=== PATIENT | female | born 1960 | race Caucasian/White ===

== ENCOUNTER 2017-12-19 10:57 | Outpatient (CLI) | payer SELFPAY ==
--- NOTE | 2017-12-24 10:13 | MMO ---
BILATERAL SCREENING MAMMOGRAM: DATE: 12/19/17 HISTORY: 57-year-old female for screening mammography. COMPARISON: 12/05/11, 05/30/16. FINDINGS: Bilateral MLO and CC views of the breasts show heterogeneously dense breast parenchyma, which may low er the sensitivity of mammography. Benign-appearing calcifications are seen in both breasts. There is no evidence of suspicious mass, daley spicious cluster of microcalcifications, or area of architectural distortion. Interpretation of this mammogram was performed with the assistance of computer-aided detection. IMPRESSION: BIRADS 2: Benign Finding(s) Annual screening mammography is recommended. POS: [facility]
== END 2017-12-19 10:58 | disposition home or self-care (01) ==
LOC: SCSMAMMO 10:57
PROVIDERS: ATTEND Family Medicine
DX: Z12.31 Encounter for screening mammogram for malignant neoplasm of breast (principal)
CPT/HCPCS: 77067

== ENCOUNTER 2017-12-30 14:48 | Outpatient (CLI) | payer OTHER | END 2017-12-30 14:49 | disposition home or self-care (01) | LOC: BICRAD 14:48 | DX: M25.562 Pain in left knee (principal) ==